=== PATIENT | female | born 1945 | race Caucasian/White ===

== ENCOUNTER → 2023-11-10 12:09 | Outpatient (REF) | payer MEDICARE, BC, SELFPAY | LOC: MRI 3T 12:09 | PROVIDERS: ATTENDING PHYSICIAN Internal Medicine Gastroenterology; FAMILY PHYSICIAN Internal Medicine | DX: R10.13 Epigastric pain (principal) | CPT/HCPCS: 74183; A9575 ==

== ENCOUNTER → 2024-02-29 06:21 | Day surgery (SDC) | payer MEDICARE, BC, SELFPAY | LOC: GI 06:21 | PROVIDERS: ATTENDING PHYSICIAN Internal Medicine Gastroenterology | DX: Z12.11 Encounter for screening for malignant neoplasm of colon (principal); K64.8 Other hemorrhoids; K57.30 Diverticulosis of large intestine without perforation or abscess without bleeding; R13.10 Dysphagia, unspecified; K22.2 Esophageal obstruction; Z86.010 Personal history of colon polyps | CPT/HCPCS: 43249; G0105 ==

== ENCOUNTER → 2024-07-09 12:47 | Outpatient (REF) | payer MEDICARE, BC, SELFPAY | LOC: HWRAD 12:47 | PROVIDERS: ATTENDING PHYSICIAN Internal Medicine | DX: E04.1 Nontoxic single thyroid nodule (principal) | CPT/HCPCS: 76536 ==

== ENCOUNTER → 2024-08-15 12:10 | Outpatient (REF) | payer MEDICARE, BC, SELFPAY ==
[2024-08-15 12:42] VITALS: BP 141/82; BP_SYST 70
== END ==
LOC: RADI 12:10
PROVIDERS: ATTENDING PHYSICIAN Internal Medicine
DX: E04.1 Nontoxic single thyroid nodule (principal)
CPT/HCPCS: 88173; 10005

== ENCOUNTER 2024-11-30 06:24 | Day surgery (SDC) | payer MEDICARE, BC, SELFPAY | END 2024-11-30 08:58 | disposition home or self-care (01) | LOC: GI 06:24 | PROVIDERS: ATTENDING PHYSICIAN Internal Medicine Gastroenterology; FAMILY PHYSICIAN Internal Medicine | DX: K22.2 Esophageal obstruction (principal); K44.9 Diaphragmatic hernia without obstruction or gangrene; R13.10 Dysphagia, unspecified | CPT/HCPCS: 43249 ==

== ENCOUNTER 2024-12-10 11:06 | Emergency (ER) | payer MEDICARE, BC, SELFPAY ==
[2024-12-10 11:13] VITALS: BP 159/90
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
== END 2024-12-10 14:08 | disposition home or self-care (01) ==
LOC: EMR 11:06
PROVIDERS: EMERGENCY PHYSICIAN Emergency Medicine; FAMILY PHYSICIAN Internal Medicine
DX: S16.1XXA Strain of muscle, fascia and tendon at neck level, initial encounter (principal); M25.512 Pain in left shoulder; V49.40XA Driver injured in collision with unspecified motor vehicles in traffic accident, initial encounter; W22.10XA Striking against or struck by unspecified automobile airbag, initial encounter; Y92.410 Unspecified street and highway as the place of occurrence of the external cause; I10 Essential (primary) hypertension; M48.061 Spinal stenosis, lumbar region without neurogenic claudication; F32.A Depression, unspecified; Z95.5 Presence of coronary angioplasty implant and graft; Z87.891 Personal history of nicotine dependence; Z90.49 Acquired absence of other specified parts of digestive tract; Z88.5 Allergy status to narcotic agent; Z88.0 Allergy status to penicillin; Z88.8 Allergy status to other drugs, medicaments and biological substances
CPT/HCPCS: 99284; 70450; 72125